=== PATIENT | female | born 1990 | race African-American/Black ===

== ENCOUNTER 2025-03-21 00:21 | Emergency (ER) | payer MEDICAID, OTHER ==
[~2025-03-21] VITALS: Ht 157.5 cm; Wt 70.8 kg
[2025-03-21] MEDS ORDERED: TDAP [DIPH/PERTUSSIS/TET] 0.5 ML VIAL IM ONE (01:26)
[2025-03-21] MEDS: TDAP [DIPH/PERTUSSIS/TET] 0.5 ML VIAL IM ONE (01:30)
[2025-03-21 02:24] VITALS: BP 126/79; TEMP 98.2; O2SAT 98
== END 2025-03-21 02:25 | disposition home or self-care (01) ==
LOC: ER 00:33
DX: S91.312A Laceration without foreign body, left foot, initial encounter (principal); W22.8XXA Striking against or struck by other objects, initial encounter; Y93.E2 Activity, laundry; Y92.098 Other place in other non-institutional residence as the place of occurrence of the external cause; Y99.8 Other external cause status
CPT/HCPCS: 90715